=== PATIENT | female | born 1985 | race Caucasian/White ===

== ENCOUNTER 2017-07-07 21:38 | Outpatient (CLI) | payer MEDICAID ==
[~2017-07-07] VITALS: Ht 157.5 cm; Wt 60.9 kg
[2017-07-07] MEDS ORDERED: PRENAT PO (22:04)
[2017-07-07 22:05] VITALS: BP 106/62; PULSE 77; RESP 18; Ht 157.5 cm; Wt 60.9 kg
[2017-07-07 23:13] LABS: ADD UMIC NO; UR ASCORBIC ACID NEGATIVE (NEGATIVE); UR BILIRUBIN (Dip) NEGATIVE (NEGATIVE); UR BLOOD (Dip) NEGATIVE (NEGATIVE); UR CLARITY CLEAR (CLEAR); UR COLOR YELLOW (YELLOW); UR GLUCOSE (Dip) NEGATIVE (NEGATIVE); UR KETONES (Dip) NEGATIVE (NEGATIVE); UR LEUKOCYTE ESTERASE (Dip) NEGATIVE Leu/ul (NEGATIVE); UR NITRITE (Dip) NEGATIVE (NEGATIVE); UR SPECIFIC GRAVITY (Dip) 1.013 (1.003-1.030); UR TOTAL PROTEIN (Dip) NEGATIVE (NEGATIVE); UR UROBILINOGEN (Dip) NEGATIVE (NEGATIVE)
--- NOTE | 2017-07-08 03:05 | PN ---
Triage Information Date/Time June 28, 2017 Reason for visit: Vag spotting / bleeding Weeks of Gestation 30 weeks and 5 days /Para Diabetes: none Hypertention: none Additional information 32-year-old with IUP at 30 weeks and 5 days [address] care [address] [facility] presented with complaint of light vaginal bleeding. She denies any postcoital bleeding. Denies any leaking of fluid or uterine contractions or decreased movement. Denies any complication and course. Objective Vital Signs Date Time Temp Pulse Resp B/P Pulse Ox O2 Delivery O2 Flow Rate FiO2 07/07/17 22:05 98.4 77 18 106/62 Room Air Heart Rate Comments Category 1 appropriate for gestational age Contractions: 6-10 Minutes Apart Exam GA: A&O, NAD Abdomen: Soft gravid, fundal height consistent with gestational age. No tenderness no rebound tenderness Sterile speculum examination: No blood in the vault. No bleeding in the past noted during observation cervix appears to be closed and long NST: Category 1 Rh+ Ultrasound with no evidence of previa or abruption Patient hydrated and observed in triage for couple hours. No bleeding noted. Patient denied any complaint during observation Results/Medications Results 24 hrs Laboratory Tests Test 07/07/17 21:45 Urine Color YELLOW Urine Clarity CLEAR Urine pH 6.0 Urine Specific [place] 1.013 Urine Ketones NEGATIVE Urine Nitrite NEGATIVE Urine Bilirubin NEGATIVE Urine Urobilinogen NEGATIVE Urine Leukocyte Esterase NEGATIVE Urine Hemoglobin NEGATIVE Urine Glucose NEGATIVE Urine Total Protein NEGATIVE Disposition: Discharge Assessment/Plan IUP at 30 weeks and 5 days Light bleeding, resolved No evidence of abruption DC home labor precaution, abruption precaution and follow-up within 24-48 hours with her OB clinic recommended and discussed with patient. Patient verbalized understanding. DESTINEE NORTON MD Jul 08, 2017 03:04
--- NOTE | 2017-07-08 10:02 | RADRPT ---
PROCEDURE: US OB cervical length. CLINICAL INDICATION: labor TECHNIQUE: Multiple sonographic images of the pelvis were obtained. The images were reviewed on a PACS workstation. COMPARISON: No pertinent prior examinations were submitted for comparison. FINDINGS: The cervix is closed with a length of 3.4 cm. There is a single live intrauterine gestation. Cardiac activity is present with 132 beats per minut e. There is a vertex presentation. The placenta is anterior, grade 1 appearance and without evidence of previa or abruption. The placenta is anterior. There is no evidence for an abruption or placenta previa. IMPRESSION: Cervical length 3.4 cm. RPTAT: HJAH .Angel Carpenter MD, Date Time Electronically viewed and signed by .Angel Carpenter MD, on 07/08/2017 00:33 .T/
--- NOTE | 2017-07-08 10:04 | TRIAGE ---
OB Triage Datetime Report Generated by CPN: 07/08/2017 02:49 Datetime: 07/08/2017 01:30 Labor Evaluation Frequency: NONE Monitor Mode: External Pattern: Normal: <= 5 Contractions in 10 Minutes Resting Tone Cochrane: Relaxed Heart Rate FHR Baseline Rate: 125 Monitor Mode: External US Variability: Moderate 6-25 bpm Accelerations: 15X15 Decelerations: None Category: Category I Datetime: 07/08/2017 00:30 Labor Evaluation Frequency: x5 Monitor Mode: External Duration (sec)2399: 40-120 Pattern: Normal: <= 5 Contractions in 10 Minutes Resting Tone Cochrane: Relaxed Heart Rate FHR Baseline Rate: 130 Monitor Mode: External US Variability: Moderate 6-25 bpm Accelerations: 15X15 Decelerations: None Category: Category I Pain Assessment Pain Scale: 0 Pain Presence: None/Denies Pain Type: N/A Datetime: 07/07/2017 23:36 Pain Assessment Pain Scale: 0 Pain Presence: None/Denies Pain Type: N/A Datetime: 07/07/2017 23:32 Vaginal Exam Vaginal Bleeding: None Pool: Negative Datetime: 07/07/2017 23:30 Labor Evaluation Frequency: x1 Monitor Mode: External Duration (sec)2399: 120 Pattern: Normal: <= 5 Contractions in 10 Minutes Resting Tone Cochrane: Relaxed Heart Rate FHR Baseline Rate: 130 Monitor Mode: External US Variability: Moderate 6-25 bpm Accelerations: 15X15 Decelerations: None Category: Category I Datetime: 07/07/2017 22:30 Labor Evaluation Frequency: x3 Monitor Mode: External Duration (sec)2399: 50-90 Pattern: Normal: <= 5 Contractions in 10 Minutes Resting Tone Cochrane: Relaxed Heart Rate FHR Baseline Rate: 130 Monitor Mode: External US Variability: Moderate 6-25 bpm Accelerations: 15X15 Decelerations: None Category: Category I Datetime: 07/07/2017 22:00 Time of Arrival: 07/07/2017 21:30 EGA: 30.5 Arrived By: Wheelchair Arrived From: Home Chief Complaint: Vaginal bleeding Movement: Present Contractions: Denies/Absent Rupture of Membranes: Denies Vaginal Bleeding: Small Vaginal Discharge: Denies Recent Sexual Intercouse: Denies Abdominal Trauma: Not Applicable Patient Complaints: None Initial Plan: CEFM Datetime: 07/07/2017 21:57 Stage of : OB Triage Assessment Type: Triage Maternal Assessment Level of Consciousness: Fully Conscious DTR's/Clonus: DTRs 2+; No Clonus Headache: Denies Blurred Vision: No Respiratory Effort: Unlabored; Regular Rhythm; Equal Expansion Breath Sounds, Left: Clear and Equal Breath Sounds, Right: Clear and Equal Nausea/Vomiting: Denies RUQ Epigastric Pain: Denies Lower Extremities Edema: None Degree: None Upper Extremities Edema: None Degree: None Facial Edema: None Temperature Route: Oral Fall Risk Assessment History of Falling: (0) No Secondary Diagnosis: (0) No Ambulatory Aid: (0) Bedrest/Nurse Assist IV Therapy: (0) No Gait: (0) Normal/Bedrest/Immobile Mental Status: (0) Oriented to Own Ability Fall Score: 0 Fall Risk Score Definition: No Risk: No action required Pain Assessment Pain Scale: 0 Pain Presence: None/Denies Pain Type: N/A Datetime: 07/07/2017 21:54 Monitor Mode: Palpation (Annotations: Applied) Resting Tone Cochrane: Relaxed Monitor Mode: External US (Annotations: Applied)
== END 2017-07-08 02:05 | disposition home or self-care (01) ==
LOC: OBT 21:38 → L-D 21:38 → OBT 07-08 02:05
PROVIDERS: ATTEND Obstetrics & Gynecology
DX: O20.8 Other hemorrhage in early pregnancy (principal); Z3A.30 30 weeks gestation of pregnancy
CPT/HCPCS: 76815; 76817; 81003; 86900; 86901; Z7500; G0463

== ENCOUNTER 2017-08-09 09:14 | Emergency (ER) | payer MEDICAID ==
[~2017-08-09] VITALS: Wt 68.0 kg
[~2017-08-09 09:14] MED LIST: PRENAT PO
[2017-08-09] MEDS ORDERED: FAMOTIDINE 20 MG TAB PO ONE (10:00)
[2017-08-09] MEDS ORDERED: DIPHENHYDRAMINE 25 MG CAP PO ONE (10:00)
[2017-08-09 10:29] LABS: ADD UMIC NO; UR ASCORBIC ACID NEGATIVE (NEGATIVE); UR BACTERIA FEW /HPF (NONE SEEN); UR BILIRUBIN (Dip) NEGATIVE (NEGATIVE); UR BLOOD (Dip) NEGATIVE (NEGATIVE); UR CLARITY SLIGHTLY CLOUDY (CLEAR); UR COLOR YELLOW (YELLOW); UR GLUCOSE (Dip) NEGATIVE (NEGATIVE); UR KETONES (Dip) NEGATIVE (NEGATIVE); UR LEUKOCYTE ESTERASE (Dip) NEGATIVE Leu/ul (NEGATIVE); UR NITRITE (Dip) NEGATIVE (NEGATIVE); UR RBC 1 /HPF (0-5); UR SPECIFIC GRAVITY (Dip) 1.014 (1.003-1.030); UR SQUAMOUS EPITHELIAL CELL FEW /HPF (FEW); UR TOTAL PROTEIN (Dip) NEGATIVE (NEGATIVE); UR UROBILINOGEN (Dip) NEGATIVE (NEGATIVE)
[2017-08-09] MEDS ORDERED: FAMO-96 PO (10:35)
[2017-08-09] MEDS ORDERED: BEN25 PO (10:35)
[2017-08-09] MEDS ORDERED: CEPH-443 PO (10:36)
[2017-08-09] MEDS ORDERED: LORATADINE 10 MG TAB PO STA (10:42)
--- NOTE | 2017-08-09 11:00 | ERD ---
ER Documentation Chief Complaint Date/Time DATE: 08/09/17 TIME: 10:53 Chief Complaint rash and itching since wednesday, on nitrofurantoin 35 weeks HPI 32-year-old female who is 35 weeks presents to the emergency department complaining of generalized itchiness since Wednesday. Patient states that she has been placed on Macrobid a couple days prior to being seen for urinary tract infection develops itchiness. She denies any fevers, dysuria, shortness of breath, chest pain. She denies any abdominal pain, pelvic ROS All systems reviewed and are negative except as per history of present illness. Medications Home Meds Active Scripts Cephalexin* (Keflex*) 500 Mg Capsule, 500 MG PO QID for 5 Days, CAP Prov:RADHA RAZA PA-C 08/09/17 Famotidine* (Pepcid*) 20 Mg Tablet, 20 MG PO DAILY, #20 TAB Prov:RADHA RAZA PA-C 08/09/17 Diphenhydramine Hcl* (Benadryl*) 25 Mg Cap, 25 MG PO Q6 Y for ITCHING/RASH, #30 TAB Prov:RADHA RAZA PA-C 08/09/17 Reported Medications Multivit/Min/Fol Ac/Iron/Pren* ( S*) 1 Tab Tab, 1 TAB PO DAILY, TAB 07/07/17 Allergies Allergies: Coded Allergies: No Known Allergies (Verified Allergy, Unknown, 07/07/17) PMhx/Soc Medical and Surgical Hx: pt denies Medical Hx, pt denies Surgical Hx Hx Alcohol Use: No Hx Tobacco Use: No Smoking Status: Never smoker Physical Exam Vitals Vital Signs Date Time Temp Pulse Resp B/P Pulse Ox O2 Delivery O2 Flow Rate FiO2 08/09/17 09:16 97.9 80 79 124/68 99 Physical Exam Const: Developed well-nourished no acute distress Head: Atraumatic Eyes: Normal Conjunctiva ENT: Normal External Ears, Nose and Mouth. Neck: Full range of motion..~ No meningismus. Resp: Clear to auscultation bilaterally Cardio: Regular rate and rhythm, no murmurs Abd: Soft, non tender, non distended. Normal bowel sounds Skin: No petechiae or rashes Back: No midline or flank tenderness Ext: No cyanosis, or edema Neur: Awake and alert Psych: Normal Mood and Affect Results 24 hrs Laboratory Tests Test 08/09/17 10:00 Urine Color YELLOW Urine Clarity SLIGHTLY CLOUDY Urine pH 7.0 Urine Specific [place] 1.014 Urine Ketones NEGATIVEmg/dL Urine Nitrite NEGATIVEmg/dL Urine Bilirubin NEGATIVEmg/dL Urine Urobilinogen NEGATIVEmg/dL Urine Leukocyte Esterase NEGATIVELeu/ul Urine Microscopic RBC 1/HPF Urine Microscopic WBC 1/HPF Urine Squamous Epithelial Cells FEW/HPF Urine Bacteria FEW/HPF Urine Hemoglobin NEGATIVEmg/dL Urine Glucose NEGATIVEmg/dL Urine Total Protein NEGATIVEmg/dl Current Medications Medications (Trade) Dose Ordered Sig/Navid Route PRN Reason Start Time Stop Time Status Last Admin Dose Admin Famotidine (Pepcid) 20 mg ONCE ONCE PO 08/09/17 10:00 08/09/17 10:01 DC 08/09/17 10:03 Diphenhydramine HCl (Benadryl) 25 mg ONCE ONCE PO 08/09/17 10:00 08/09/17 10:01 DC Loratadine (Claritin) 10 mg ONCE STAT PO 08/09/17 10:42 08/09/17 10:43 DC Procedures/MDM 32-year-old female who is 35 weeks presents to the emergency department complaining of generalized itchiness and she took Macrobid a couple days prior to being seen. There was no evidence of anaphylaxis or synovitis. Patient appears well and stable to be discharged home to follow-up with [facility]. Urinalysis is done in the ED did not show any evidence of infection however since she was placed on Macrobid for infection I have discussed with her to discontinue it we placed her on Keflex for the next 5 days. In the ED patient was given Claritin and Pepcid . She is given prescription for Benadryl and Pepcid for outpatient. Discussed return to the ER for worsening signs or symptoms. She understands and agrees with plan Departure Diagnosis: Primary Impression: Rash Condition: Stable Patient Instructions: Self-Care for Skin Rashes Referrals: NO PRIMARY,CARE PHYSICIAN (PCP) Additional Instructions: FOLLOW UP WITH YOUR PRIMARY CARE PHYSICIAN TOMORROW.Return to this facility if you are not improving as expected. Return to this facility if you are not improving as expected. Take all medicines as directed. RADHA RAZA PA-C Aug 09, 2017 11:00
== END 2017-08-09 11:08 | disposition home or self-care (01) ==
LOC: FTE 09:14
DX: R21 Rash and other nonspecific skin eruption (principal)
CPT/HCPCS: 81001; 87086; Z7502; Z7610; 81003; 99283

== ENCOUNTER 2017-08-29 04:12 | Inpatient (IN) | payer MEDICAID ==
[~2017-08-29] VITALS: Ht 157.5 cm; Wt 70.9 kg
[~2017-08-29 04:12] MED LIST changes: +BEN25 PO; +CEPH-443 PO; +FAMO-96 PO
[2017-08-29 05:02] VITALS: Ht 157.5 cm; Wt 70.9 kg
[2017-08-29 05:03] VITALS: BP 119/67; PULSE 80; RESP 18
--- NOTE | 2017-08-29 05:53 | TRIAGE ---
OB Triage Datetime Report Generated by CPN: 08/29/2017 05:52 Datetime: 08/29/2017 05:38 Vaginal Exam Dilatation (cms): 2.0 Effacement (%): 90 Station: -2 Exam By: M. Tungate RN Membrane Status: Bulging Datetime: 08/29/2017 05:34 Presentation 'A': Cephalic Datetime: 08/29/2017 05:30 Pain Assessment Pain Scale: 8 Pain Presence: Intermittent Pain Type: Cramping Pain Location: Abdomen Datetime: 08/29/2017 04:20 Time of Arrival: 08/29/2017 04:03 EGA: 38.2 Arrived By: Wheelchair Arrived From: Home Chief Complaint: UC's Movement: Present Contractions: Regular Time Contractions Began: 08/28/2017 14:00 Rupture of Membranes: Denies Vaginal Bleeding: None Vaginal Discharge: Denies Recent Sexual Intercouse: Denies Abdominal Trauma: Not Applicable Patient Complaints: Contractions Time Provider Notified: 08/29/2017 04:20 Provider Notified: Dr. Hadley Initial Plan: CEFM, VE Datetime: 08/29/2017 04:16 Stage of : OB Triage Assessment Type: Triage Maternal Assessment Level of Consciousness: Fully Conscious DTR's/Clonus: DTRs 2+; No Clonus Headache: Denies Blurred Vision: No Respiratory Effort: Unlabored; Regular Rhythm; Equal Expansion Breath Sounds, Left: Clear and Equal Breath Sounds, Right: Clear and Equal Nausea/Vomiting: Denies RUQ Epigastric Pain: Denies Lower Extremities Edema: None Degree: None Upper Extremities Edema: None Degree: None Facial Edema: None Temperature Route: Oral Fall Risk Assessment History of Falling: (0) No Secondary Diagnosis: (0) No Ambulatory Aid: (0) Bedrest/Nurse Assist IV Therapy: (0) No Gait: (0) Normal/Bedrest/Immobile Mental Status: (0) Oriented to Own Ability Fall Score: 0 Fall Risk Score Definition: No Risk: No action required Pain Assessment Pain Scale: 7 Pain Presence: Intermittent Pain Type: Cramping Pain Location: Abdomen Datetime: 08/29/2017 04:13 Vaginal Exam Dilatation (cms): 1.0 Effacement (%): 80 Station: -2 Exam By: Jennifer Barajas RN Membrane Status: Bulging Vaginal Bleeding: None Datetime: 07/07/2017 22:00 EGA: 30.5 Time Provider Notified: 07/07/2017 22:10 Provider Notified: Dr. Ballard Datetime: 07/07/2017 21:57 Fall Score: 0 Fall Risk Score Definition: No Risk: No action required
[2017-08-29] MEDS ORDERED: BUTORPHANOL 2 MG INJ IV PRN (06:00)
[2017-08-29] MEDS ORDERED: CARBOPROST 250 MCG INJ IM PRN (06:00)
[2017-08-29] MEDS ORDERED: OXYTOCIN 30 UNITS/LR 500 ML IV PRN (06:00)
[2017-08-29] MEDS ORDERED: LACTATED RINGER'S 1,000 ML IV PRN (06:00)
[2017-08-29] MEDS ORDERED: IBUPROFEN 600 MG TAB PO PRN (06:00)
[2017-08-29] MEDS ORDERED: MISOPROSTOL 200 MCG TAB PR PRN (06:00)
[2017-08-29] MEDS ORDERED: LIDOCAINE 1% (MPF) 30 ML INJ INJ PRN (06:00)
[2017-08-29] MEDS ORDERED: OXYTOCIN 30 UNITS/LR 500 ML IV SCH ×2 (06:00)
[2017-08-29] MEDS ORDERED: METHYLERGONOVINE 0.2 MG INJ IM PRN (06:00)
[2017-08-29] MEDS: LACTATED RINGER'S 1,000 ML IV SCH ×3 (06:31→19:13)
--- NOTE | 2017-08-29 06:47 | RADRPT ---
PROCEDURE: ULTRASOUND OBSTETRICAL CLINICAL INDICATION: 32-year-old female and labor for position. TECHNIQUE: Multiple sonographic images of the pelvis were obtained. The images were reviewed on a PACS workstation. COMPARISON: No prior studies are available for comparison. FINDINGS: The cervix is not well visualized. There is a single viable intrauterine gestation. Cardiac activit y is present with 134 beats per minute. There is a vertex presentation. The placenta is anterior. Th ere is no evidence for an abruption or placenta previa. IMPRESSION: Single viable intrauterine gestation with vertex presentation. .Adam Garibay MD, Date Time Electronically viewed and signed by .Adam Garibay MD, on 08/29/2017 06:47 .M/
[2017-08-29 07:00] LABS: BASOPHILS % 0.2 % (0.0-2.0); EOSINOPHILS % 0.3 % (0.0-7.0); HEMATOCRIT 35.4 % (37.0-47.0); LYMPHOCYTES # 3.1 10^3/ul (0.8-2.9); LYMPHOCYTES % 28.8 % (15.0-51.0); MEAN CORPUSCULAR HEMOGLOBIN 30.8 pg (29.0-33.0); MEAN CORPUSCULAR HGB CONC 33.9 g/dl (32.0-37.0); MEAN CORPUSCULAR VOLUME 90.8 fl (82.0-101.0); MEAN PLATELET VOLUME 11.5 fl (7.4-10.4); MONOCYTE # 0.6 10^3/ul (0.3-0.9); MONOCYTES % 5.5 % (0.0-11.0); NEUTROPHILS % 64.6 % (39.0-77.0); PLATELET COUNT 213 10^3/UL (140-415); RED CELL DISTRIBUTION WIDTH 13.1 % (11.5-14.5); WHITE BLOOD COUNT 10.8 10^3/ul (4.8-10.8)
[2017-08-29] MEDS ORDERED: FENTAnyl 2MCG/ML-ROPIV 0.2% 0 ML ONE (07:03)
--- NOTE | 2017-08-29 07:10 | HP ---
Date/Time of Note Date/Time of Note DATE: 08/29/17 TIME: 07:09 OB - History Hx of Present Free Text/Dictation co of ucx : 3 Ultrasounds: Normal mid trimester US Obstetrical Complications: None Past Family/Social History * Past Medical, Surgical, Family and Obstetric Histories reviewed from chart. OB Admission Exam Vital Signs Vital Signs Vital Signs Date Time Temp Pulse Resp B/P Pulse Ox O2 Delivery O2 Flow Rate FiO2 08/29/17 05:03 98.2 80 18 119/67 Room Air Physical Exam HEENT: WNL Heart: Rhythm Normal Abdomen: WNL Extremities: Normal Reflexes: Normal Cervical Dilatation: None Last 72 hours Lab Results CBC & BMP 08/29/17 06:10 OB Assessment/Plan Plan: Expectant Management Other plan: iup term labor admit for labor plan VANNESA Poon MD Aug 29, 2017 07:10
[2017-08-29 07:17] LABS: INR 0.86; PROTIME 11.7 Sec (12.2-14.2); PT RATIO 0.9
[2017-08-29 07:18] LABS: PARTIAL THROMBOPLASTIN TIME 25.8 Sec (25.0-35.0)
[2017-08-29] MEDS ORDERED: MINERAL OIL LIGHT 10 ML VIAL TOP PRN (08:00)
[2017-08-29] MEDS ORDERED: DEXTROSE 5%-LR 1,000 ML IV PRN (10:30)
[2017-08-29] MEDS ORDERED: FENTAnyl 2MCG/ML-ROPIV 0.2% 100 ML ONE (10:56)
[2017-08-29] MEDS ORDERED: ONDANSETRON 4 MG INJ IV PRN (13:30)
[2017-08-29] MEDS ORDERED: DIPHENHYDRAMINE 50 MG INJ IV PRN (13:30)
[2017-08-29] MEDS ORDERED: NALOXONE (0.4 MG/ML) INJ IV PRN (13:30)
[2017-08-29] MEDS: FENTAnyl 2MCG/ML-ROPIV 0.2% 100 ML BAG EPI SCH ×2 (14:21→21:11)
[2017-08-30] MEDS: LACTATED RINGER'S 1,000 ML IV SCH ×3 (02:48→11:26)
[2017-08-30] MEDS: FENTAnyl 2MCG/ML-ROPIV 0.2% 100 ML BAG EPI SCH ×2 (05:54→11:28)
[2017-08-30] MEDS ORDERED: AMPICILLIN 2 GM/NS (PMX) 100 ML IVPB ONE (09:00)
[2017-08-30] MEDS ORDERED: OXYTOCIN 30 UNITS/LR 500 ML IV SCH (09:00)
[2017-08-30] MEDS: AMPICILLIN 1 GM/NS (PMX) 50 ML IVPB SCH ×2 (12:38→17:51)
--- NOTE | 2017-08-30 20:17 | LDN ---
Date/Time of Note Date/Time of Note DATE: 08/30/17 TIME: 20:13 Delivery Summary Normal spontaneous vaginal delivery of a baby boy from OA position shoulders delivered without difficulty rest of the baby's body followed cord clamped after stopped pulsation placenta is spontaneous expulsion inspected complete estimated blood loss 300 cc patient sustained first-degree perineal vaginal laceration repaired with 3-0 chromic catgut and 4-0 chromic catgut Weeks of Gestation The 8 weeks 2 days Placenta Delivered: Spontaneously Meconium: none Episiotomy: No Perineal laceration: 1 Laceration repair: First-degree perineal vaginal laceration repaired with 3-0 chromic catgut and 4 0 chromic cat Estimated blood loss: 300 Sponge & Needle done & correct: Yes All needle counts correct: Yes Any foreign bodies felt in the: No Problems: Infant Delivery Information Sex Infant Sex: male Apgars 1 Minute: 9 5 Minute: 9 Suctioning Nose & mouth suctioned at kiran: Yes Delee suction performed: No Umbilical Cord Umbilical cord with: 3 Vessels Cord presentations: nuchal cord Cord Blood was obtained: Yes ANAMARIA BURGER MD Aug 30, 2017 20:17
[2017-08-30 21:45] VITALS: BP 123/75; PULSE 71; RESP 18
[2017-08-30] MEDS: OXYTOCIN 30 UNITS/LR 500 ML IV SCH (21:50)
[2017-08-30] MEDS ORDERED: ONDANSETRON 4 MG INJ IV PRN (22:00)
[2017-08-30] MEDS ORDERED: HYDROCODONE/APAP (5/325) TAB PO PRN ×2 (22:00)
[2017-08-30] MEDS ORDERED: DIBUCAINE 1% 30 GM OINT PR PRN (22:00)
[2017-08-30] MEDS ORDERED: ACETAMINOPHEN 325 MG TAB PO PRN (22:00)
[2017-08-30] MEDS ORDERED: LANOLIN 7 GM TUBE TOP PRN (22:00)
[2017-08-30] MEDS ORDERED: BENZOCAINE 20% 56 ML SPRAY TOP PRN (22:00)
[2017-08-30] MEDS ORDERED: OXYCODONE/ASPIRIN (4.88/325) TAB PO PRN ×2 (22:00)
[2017-08-30] MEDS ORDERED: WITCH HAZEL/GLYCERIN PAD PR PRN (22:00)
[2017-08-30 22:45] VITALS: BP 125/72; PULSE 78; RESP 19
[2017-08-30] MEDS: IBUPROFEN 600 MG TAB PO SCH (23:31)
[2017-08-31 00:15] VITALS: BP 126/72; PULSE 65; RESP 19
[2017-08-31] MEDS: OXYTOCIN 30 UNITS/LR 500 ML IV SCH (00:57)
[2017-08-31 04:15] VITALS: BP 109/66; PULSE 66; RESP 18
[2017-08-31] MEDS: IBUPROFEN 600 MG TAB PO SCH ×4 (05:44→23:49)
[2017-08-31 08:00] VITALS: BP 100/53; PULSE 77; RESP 18
[2017-08-31] MEDS: SENNA/DOCUSATE NA (8.6MG/50MG) TAB PO SCH ×2 (08:41→21:55)
[2017-08-31 10:49] LABS: WHITE BLOOD COUNT 16.5 10^3/ul (4.8-10.8)
[2017-08-31 10:50] LABS: BASOPHILS % 0.1 % (0.0-2.0); EOSINOPHILS % 0.2 % (0.0-7.0); HEMATOCRIT 31.1 % (37.0-47.0); HEMOGLOBIN 10.2 g/dl (12.0-16.0); LYMPHOCYTES # 2.4 10^3/ul (0.8-2.9); LYMPHOCYTES % 14.5 % (15.0-51.0); MEAN CORPUSCULAR HGB CONC 32.8 g/dl (32.0-37.0); MEAN CORPUSCULAR VOLUME 91.5 fl (82.0-101.0); MEAN PLATELET VOLUME 11.5 fl (7.4-10.4); MONOCYTE # 0.7 10^3/ul (0.3-0.9); MONOCYTES % 4.3 % (0.0-11.0); NEUTROPHIL # 13.2 10^3/ul (1.6-7.5); NEUTROPHILS % 80.4 % (39.0-77.0); PLATELET COUNT 188 10^3/UL (140-415); RED CELL DISTRIBUTION WIDTH 13.6 % (11.5-14.5)
[2017-08-31 11:58] VITALS: BP 105/64; PULSE 74; RESP 18
--- NOTE | 2017-08-31 13:10 | QN ---
Documentation Comment Post vaginal delivery day Vital signs are stable Afebrile Abdomen soft Uterus firm Lochia normal Extremities normal ANAMARIA BURGER MD Aug 31, 2017 13:10
[2017-08-31 16:19] VITALS: BP 114/57; PULSE 72; RESP 20
[2017-08-31 20:10] VITALS: BP 102/58; PULSE 70; RESP 18
[2017-09-01 04:00] VITALS: BP 105/67; PULSE 74; RESP 18
[2017-09-01] MEDS: IBUPROFEN 600 MG TAB PO SCH ×3 (06:12→17:35)
[2017-09-01 07:30] VITALS: BP 107/62; PULSE 94; RESP 20
[2017-09-01] MEDS: SENNA/DOCUSATE NA (8.6MG/50MG) TAB PO SCH ×2 (08:42→21:28)
[2017-09-01] MEDS ORDERED: MEASLES,MUMPS,RUBELLA VACCINE INJ SC* ONE (09:00)
[2017-09-01 16:32] VITALS: BP 114/66; PULSE 66; RESP 18
--- NOTE | 2017-09-01 17:08 | QN ---
Documentation Comment Post normal vaginal delivery day 2 Afebrile Vital signs are stable Abdomen soft Uterus firm Lochia normal Extremities normal Baby is under blue light Plan of a.m. discharge discussed with the patient ANAMARIA BURGER MD Sep 01, 2017 17:08
[2017-09-01 20:00] VITALS: BP 111/69; PULSE 77; RESP 18
[2017-09-02] MEDS: IBUPROFEN 600 MG TAB PO SCH ×3 (00:27→13:11)
[2017-09-02 04:00] VITALS: BP 113/70; PULSE 58; RESP 19
[2017-09-02 08:15] VITALS: BP 116/78; PULSE 61; RESP 18
[2017-09-02] MEDS: SENNA/DOCUSATE NA (8.6MG/50MG) TAB PO SCH (10:26)
--- NOTE | 2017-09-02 12:25 | PD.PPDC ---
STE[facility] Discharge Instruction Condition Patient Condition: Good Diet Diet: Resume Regular Diet Activity/Restrictions Activity: Normal Activity May Shower Restrictions: No Exercising No Lifting No Driving No Sexual Activity Nothing in the Vagina No [place] No Tampons, douche Follow-up Follow-up with Physician: 2, Week/Weeks Provider Information: instruction given recommended to make appointment to be seen at the clinic in 2 weeks Return to clinic for [facility] [facility] Instructions: Fever greater than 101 Chills Worsening abdominal pain Excessive Vaginal Bleeding More than 2 pads per hour Unable to tolerate diet ANAMARIA BURGER MD Sep 02, 2017 12:25
--- NOTE | 2017-09-02 12:28 | DS ---
Date/Time of Note Date/Time of Note DATE: 09/02/17 TIME: 12:26 Discharge Summary Admission/Discharge Info Admit Date/Time Aug 29, 2017 at 05:51 Discharge Date/Time September 02, 2017 at 1220 Discharge Diagnosis Post normal vaginal delivery day 2 Patient Condition: Good Procedures Normal vaginal delivery Hx of Present Illness Term Hospital Course Satisfactory uneventful Home Meds Active Scripts Cephalexin* (Keflex*) 500 Mg Capsule, 500 MG PO QID for 5 Days, CAP Prov:RADHA RAZA PA-C 08/09/17 Famotidine* (Pepcid*) 20 Mg Tablet, 20 MG PO DAILY, #20 TAB Prov:RADHA RAZA PA-C 08/09/17 Diphenhydramine Hcl* (Benadryl*) 25 Mg Cap, 25 MG PO Q6 Y for ITCHING/RASH, #30 TAB Prov:RADHA RAZA PA-C 08/09/17 Reported Medications Multivit/Min/Fol Ac/Iron/Pren* ( S*) 1 Tab Tab, 1 TAB PO DAILY, TAB 07/07/17 Follow-up Plan instruction given recommended to make appointment to be seen at the clinic in 2 weeks Primary Care Provider Care Physician No Primary Time spent on discharge: < 30 minutes ANAMARIA BURGER MD Sep 02, 2017 12:28
== END 2017-09-02 15:10 | disposition home or self-care (01) | DRG 775 ==
LOC: OBT 04:12 → L-D 04:12 → OBT 05:50 → L-D 05:51 → PP1 08-30 21:49
PROVIDERS: ADMIT Obstetrics & Gynecology; ATTEND Obstetrics & Gynecology
PROC: 10E0XZZ Delivery of Products of Conception, External Approach (ICD-10-PCS; principal; 2017-08-30)
PROC: 0HQ9XZZ Repair Perineum Skin, External Approach (ICD-10-PCS; 2017-08-30)
DX: O70.0 First degree perineal laceration during delivery (principal); O69.81X0 Labor and delivery complicated by cord around neck, without compression, not applicable or unspecified; Z37.0 Single live birth; Z3A.38 38 weeks gestation of pregnancy
CPT/HCPCS: 62319; 76815; 85025; 85610; 85730; 86592; 86900; 86901; 99464; G0463; J0290; J2590; J3010; J7120